=== PATIENT | male | born 1990 | race Caucasian/White ===

== ENCOUNTER 2023-08-25 15:25 | Emergency (ER) | payer OTHER ==
--- NOTE | 2023-08-25 15:33 | EDPHYS ---
Physician Documentation [facility] Name: Dony Cornell Age: 33 yrs Sex: Male : 1990 Arrival Date: 08/25/2023 Time: 15:25 Bed Waiting Private MD: ED Physician Max Carlton HPI: 08/25 16:47 This 33 yrs old Male presents to ER via Ambulatory with complaints of Arm Pain. kb 16:47 The patient presents with an abscess of the right axilla. Description: erythematous, kb swollen. Onset: The symptoms/episode began/occurred 3 day(s) ago. Possible cause(s): unknown. Associated signs and symptoms: Pertinent positives: erythema, swelling. Modifying factors: the symptoms are alleviated by nothing, the symptoms are aggravated by pressure, squeezing the lesion and expressing the contents. Severity of symptoms: At their worst the symptoms were mild, moderate, in the emergency department the symptoms are unchanged. The patient has not experienced similar symptoms in the past. The patient has not recently seen a physician. Historical: - Allergies: 15:32 PENICILLINS; ss 15:32 Latex, Natural Rubber; ss 15:32 Tylenol; ss - Home Meds: 15:32 None [Active]; ss - PMHx: 15:32 adhd; ss - Social history:: Smoking status: Patient reports the use of cigarette tobacco products, smokes one-half pack cigarettes per day. ROS: 16:46 Constitutional: Negative for fever, chills, and weight loss, kb 16:46 Skin: Positive for abscess, of the right axilla, 16:46 All other systems are negative, Exam: 16:46 Constitutional: This is a well developed, well nourished patient who is awake, alert, kb and in no acute distress. Head/Face: Normocephalic, atraumatic. ENT: Moist Mucous membranes Cardiovascular: Regular rate Respiratory: Respirations even and unlabored. No increased work of breathing. Talking in full sentences MS/ Extremity: Pulses equal, no cyanosis. Neurovascular intact. Full, normal range of motion. Neuro: Awake and alert, GCS 15, oriented to person, place, time, and situation. Moves all extremities. Normal gait. 16:46 Skin: abscess, that is small, of the right axilla, with surrounding cellulitis, that is very mild, Vital Signs: 15:31 BP 126 / 75; Pulse 86; Resp 16; Temp 98.2(TE); Pulse Ox 99% ; Weight 108.41 kg; Height ss 6 ft. 1 in. ; Pain 8/10; 15:31 Body Mass Index 31.53 (108.41 kg, 185.42 cm) ss 15:31 Pain Scale: Adult ss MDM: 15:29 Patient medically screened. kb 16:47 Differential diagnosis: abscess, allergic reaction, cellulitis, insect bite. Data kb reviewed: vital signs, nurses notes. Counseling: I had a detailed discussion with the patient and/or guardian regarding the historical points, exam findings, and any diagnostic results supporting the discharge/admit diagnosis, the need for outpatient follow up, a general surgeon, to return to the emergency department if symptoms worsen or persist or if there are any questions or concerns that arise at home. ED course: No drainable abscess appreciated. Administered Medications: 15:41 Drug: Trimethoprim-Sulfamethoxazole PO (160 mg-800 mg (DS) 1 tablet PO once Route: PO; ss 15:41 Follow up: Response: Medication administered at discharge. ss 15:41 Drug: Cephalexin PO 500 mg PO once Route: PO; ss 15:41 Follow up: Response: Medication administered at discharge. Disposition Summary: 08/25/23 15:32 Discharge Ordered Notes: Location: Home kb Condition: Stable kb Diagnosis - Cutaneous abscess of right axilla kb Followup: kb - With: Emergency Department - When: As needed - Reason: Worsening of condition Followup: kb - With: Private Physician - When: 2 - 3 days - Reason: Recheck today's complaints, Continuance of care, Re-evaluation by your physician Discharge Instructions: - Discharge Summary Sheet kb - Skin Abscess, Piaw-qa-Hedk kb Forms: - Medication Reconciliation Form kb - Thank You Letter kb - Antibiotic Education kb - Prescription Opioid Use kb - Patient Portal Instructions kb - Leadership Thank You Letter kb Prescriptions: - Cephalexin 500 mg Oral Capsule - take 1 capsule ORAL route every 8 hours for 10 days; 30 capsule; Refills: 0, kb Product Selection Permitted - Bactrim DS 800-160 mg Oral Tablet - take 1 tablet ORAL route every 12 hours for 10 days; 20 tablet; Refills: 0, kb Product Selection Permitted Addendum: 08/27/2023 07:39 I was immediately available for consultation during this patient's visit. I did not e c2 personally see the patient or guide the patient's care.. Signatures: Christi Syed FNP-C FNP-Jade Stevens RN RN ss Max Carlton MD MD ec2
--- NOTE | 2023-08-25 15:33 | ER ---
Nurse's Notes [facility] Name: Dony Cornell Age: 33 yrs Sex: Male : 1990 Arrival Date: 08/25/2023 Time: 15:25 Bed Waiting Private MD: Diagnosis: Cutaneous abscess of right axilla Presentation: 08/25 15:31 Chief complaint: Patient states: redness and inflammation under R axilla x 3 days. ss Coronavirus screen: Client denies travel out of the [place] in the last 14 days. Ebola Screen: Patient denies exposure to infectious person. Patient denies travel to an Ebola-affected area in the 21 days before illness onset. Initial Sepsis Screen: Does the patient meet any 2 criteria? No. Patient's initial sepsis screen is negative. Does the patient have a suspected source of infection? No. Patient's initial sepsis screen is negative. Risk Assessment: Do you want to hurt yourself or someone else? Patient reports no desire to harm self or others. Onset of symptoms was August 22, 2023. 15:31 Method Of Arrival: Ambulatory ss 15:31 Acuity: LI 4 ss Historical: - Allergies: 15:32 PENICILLINS; ss 15:32 Latex, Natural Rubber; ss 15:32 Tylenol; ss - Home Meds: 15:32 None [Active]; ss - PMHx: 15:32 adhd; ss - Social history:: Smoking status: Patient reports the use of cigarette tobacco products, smokes one-half pack cigarettes per day. Assessment: 15:33 General: Appears in no apparent distress. comfortable, Behavior is calm, cooperative. ss Pain: Complains of pain in right axilla Pain currently is 8 out of 10 on a pain scale. Quality of pain is described as tender. Respiratory: Airway is patent Respiratory effort is even, unlabored. Vital Signs: 15:31 BP 126 / 75; Pulse 86; Resp 16; Temp 98.2(TE); Pulse Ox 99% ; Weight 108.41 kg; Height ss 6 ft. 1 in. ; Pain 8/10; 15:31 Body Mass Index 31.53 (108.41 kg, 185.42 cm) ss 15:31 Pain Scale: Adult ss ED Course: 15:29 Patient arrived in ED. mg5 15:29 Christi Syed [facility]-C [facility] kb 15:29 Max Carlton MD is Attending Physician. kb 15:32 Triage completed. ss 15:32 Arm band placed on left wrist. ss 15:33 No provider procedures requiring assistance completed. Patient did not have IV access ss during this emergency room visit. Administered Medications: 15:41 Drug: Trimethoprim-Sulfamethoxazole PO (160 mg-800 mg (DS) 1 tablet PO once Route: PO; ss 15:41 Follow up: Response: Medication administered at discharge. ss 15:41 Drug: Cephalexin PO 500 mg PO once Route: PO; ss 15:41 Follow up: Response: Medication administered at discharge. ss Outcome: 15:32 Discharge ordered by . kb 15:41 Patient left the ED. ss Signatures: Christi Syed FNP-C FNP-Ckb Blanchard, Shelby, RN RN Izabella Dasilva mg5
[2023-08-25] MEDS ORDERED: SMZ./TMP. 800/160 MG TABLET ONE (15:52)
[2023-08-25] MEDS ORDERED: CEPHALEXIN 250 MG CAP ONE (15:52)
[2023-08-25 16:02] VITALS: BP 126/75; TEMP 98.2; O2SAT 99
== END 2023-08-25 15:41 | disposition home or self-care (01) ==
LOC: ER 15:25
DX: L03.111 Cellulitis of right axilla (principal); F17.210 Nicotine dependence, cigarettes, uncomplicated; Z88.0 Allergy status to penicillin; Z88.6 Allergy status to analgesic agent; Z91.040 Latex allergy status; Z91.048 Other nonmedicinal substance allergy status
CPT/HCPCS: 99282

== ENCOUNTER 2024-03-29 16:10 | Emergency (ER) | payer OTHER ==
--- OUTSIDE RECORDS SUMMARY | 2024-03-29 16:18 | XMS REPORT | Continuity of Care Document ---
Author Name Unknown Address [address] [place] [address] [facility] thconnect Address 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 Role Phone PCP, PATIENT DOES NOT HAVE A Primary Care Physic sahra Unavailable LEONIE KHAN Attending Clinician Unavailab Leonie Perez DO Attending Clinician [phone] LEONIE KHAN Admitting Clinician Unavailab euceda Payers Payer Name Policy Type Policy Number Effective Date Expirati on Date Source [employer] [id number] 2023 00:00:00 Allergies, Adverse Reactions, Alerts Allergy Name Allergy Type Status Severity Reaction(s) Onset Date Inactive Date Treating Clinician Comments Source PENICILL INS Drug Class Active Rash 11-30 00:00: 00 [facility] Penicill ins Propensi ty to adverse reaction s Active Rash 11-30 00:00: 00 [facility] Social History Social Habit Start Date Stop Date Quantity Comments Source Sexual orientation U [facility] Sex Assigned At 1990 00:00:00 1990 00:00:00 [facility] Smoking Status Start Date Stop Date Source Tobacco smoking consumption unknown [facility] Medications Ordered Medication Name Filled Medication Name Start Date Stop Date Current Medication? Ordering Clinician Indication Dosage Frequency Signature (SIG) Comments Components Source levoFLOXaci n (LEVAQUIN) tablet 750 mg 12-01 01:45: 00 12-01 01:06 :00 No 750mg 750 mg, Oral, ONCE NOW, 1 dose, On 11/30/23 at 1945, DANICA
Re ason for Anti-Infec tive: Empiric Therapy for Suspected Infection< br>Empiric Therapy Site: Skin / Soft tissue
Duration of therapy: Once (ED) [facility] HYDROcodone -acetaminop hen (NORCO 5) 5-325 mg tablet 1 tablet 12-01 00:45: 00 12-01 00:51 :00 No 1{tbl} 1 tablet, Oral, ONCE, 1 dose, On 11/30/23 at 1845, DANICA [facility] levoFLOXaci n 500 mg tablet 11-30 00:00: 00 12-08 05:59 :00 No [id number] 500mg Take 1 tablet by mouth every 24 (twenty-fo ur) hours for 7 days. [facility] Immunizations Ordered Immunization Name Filled Immunization Name Date Status Comments Source TD Pres-Free Unknown Completed [facility] Vital Signs Vital Name Observation Time Observation Value Comments S ource Systolic blood pressure 2023-12-01 02:00:00 127 mm[Hg] [facility] Diastolic blood pressure 2023-12-01 02:00:00 75 mm[Hg] [facility] Heart rate 2023-12-01 02:00:00 58 /min [facility] Respiratory rate 2023-12-01 02:00:00 16 /min [facility] Oxygen saturation in Arterial blood by Pulse oximetry 2023-12-01 02:00:00 99 /min [facility] Body temperature 2023-12-01 00:13:00 36.78 Margarita [facility] Body height 2023-12-01 00:13:00 185.4 cm [facility] Body weight 2023-12-01 00:13:00 106.595 kg [facility] BMI 2023-12-01 00:13:00 31.00 kg/m2 [facility] Procedures Procedure Date / Time Performed Performing Clinicia n Source ASSIGNMENT OF BENEFITS 2023-12-01 01:36:09 Docto r Unassigned, [place] [facility] POCT GLUCOSE (AUTOMATED) 2023-12-01 00:49:00 Leonie Khan [facility] CONSENT/REFUSAL FOR DIAGNOSIS AND TREATMENT 2023-12-01 00:08:46 Doctor Unassigned, [place] [facility] NOTICE OF PRIVACY PRACTICES 2023-12-01 00:08:26 Doctor Unassigned, [place] [facility] Encounters Start Date/Time End Date/Time Encounter Type Admission Type Attending Clinicians Care Facility Care Department Encounter ID Source 2023-11-30 18:17:00 2023-11-30 20:26:00 Emergency X LEONIE KHAN [facility] ERT [id number] [facility] 2023-11-30 18:17:00 2023-11-30 20:26:00 Emergency Leonie Khan [facility] [id number] [facility] Results Test Description Test Time Test Comments Results Result Co mments Source [facility](AGE >30DAYS)2023-12-01 00:49:00* Test Item Value Reference Range Interpretation Comme nts POCT Glu (age>30days) (test code = 3342) 130 mg/dL 70-110 A Lab Interpretation (test cod e = 94404-6) Abnormal [facility] Notes Date/Time Note Provider Source 2023-11-30 20:25:34 [id number]:25:34S ummary: Discharge Pt given printed and verbal discharge instructions regarding right foot pain, encouraged hydration,Prescriptions provided LevofloxacinDiscussed ibuprofen and to take with food to avoid GI distress.Discussed antibiotic therapy and to take until all completed unless adverse reaction occurs - if occurs, discontinue medication and follow up with pcp/seek medical attentionPt verbalized understanding of instructions, pt awake alert oriented, resp reg unlabored, skin w/d, color appropriate for race, moves all ext well,pt encouraged to follow up with pcpAdvised to seek medical attention for new/prolonged/worsening of symptoms,SymptomsNo adverse reaction to meds given in ER noted upon dischargeAwake, alert oriented, resp reg unlabored, skin w/d, pt leaving amb with steady gait, in no apparent distress, [id number] department YjbeCI4967-80-31P79:26:14[facility] [id number] .[id number] for patient ptig29537-0AiadDVYUJBYTQPFIxzzksjb d C-CDA narrative [id number] Schroeder RNUT01 Al[address] [id number] 85JESFUDXWLAUEZDCKLLDNWM0484-03-91 T20:26:141.2.840.581216.1.72.3.15| 1.2.840.910690.1.13.104.2.7.2.7278 [id number] Germania Russell RN [facility] 2023-11-30 18:12:46 4790-33-06M38:12:46F ormatting of this note might be different from the original.Pt arrived via private car with c/o right foot pain. 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 He was wearing a sneaker when the incident happened and reports the nail went completely through his sneaker and into his foot. He easily pulled the nail out and applied duct tape to the wound and finished the job. He reports he now has pain around the area. No fevers. No drainage from the wound. He is unsure of last tetanus vaccine. He does not have any diabetes. No medications taken for pain today.Here for evaluation.Past Medical History/Immunizations:History reviewed. No pertinent past medical history.Tetanus received in last 5 years: NoChildhood immunizations: Cj-ol-nzkpOlvmicubi:AllergiesAller gen ReactionsPcn [Penicillins] RashPast Social History:Substance & Sexual ActivityNo substance use or sexual activity history on file.Past Surgical History:History reviewed. No pertinent surgical history.Review of Systems:Review of SystemsConstitutional: Negative for chills and fever.Respiratory: Negative for cough and shortness of breath.Cardiovascular: Negative for chest pain.Gastrointestinal: Negative for abdominal pain and vomiting.Genitourinary: Negative for dysuria.Musculoskeletal: Negative for arthralgias, neck pain and neck stiffness.Skin: Positive for wound.Neurological: Negative for dizziness.Psychiatric/Behavioral: Negative for agitation.Physical Exam:ED Triage Vitals [11/30/23 1813]Weight 106.6 kg (235 lb)Actual or estimated Estimated by patient/family reportHeight 1.854 m (6' 1")BP 115/72Pulse 65Resp 16Temp 36.8 ?C (98.2 ?F)Temp source OralSpO2 99 %Measured on Room airPhysical ExamVitals and nursing note reviewed.Constitutional:Appearance : Normal appearance. He is obese.HENT:Head: Normocephalic and atraumatic.Cardiovascular:Rate and Rhythm: Normal rate and regular rhythm.Pulmonary:Effort: Pulmonary effort is normal. No respiratory distress.Abdominal:General: There is no distension.Tenderness: There is no abdominal tenderness.Musculoskeletal:General : Normal range of motion.Cervical back: Normal range of motion and neck supple.Skin:General: Skin is warm and dry.Comments: +2 dorsalis pedis right side.Pinpoint wound to the bottom of his right foot on the lateral aspect. The area is tender to the touch but not warm, erythematous or fluctuant.Neurological:Mental Status: He is alert.Radiology:XR FOOT 3+ VW RIGHTPreliminary ResultEXAM: XR FOOT 3+ VW RIGHTHISTORY: right foot painCOMPARISON: None.FINDINGS:Radiographs of the right foot demonstrate no acute fracture ordislocation.The joint spaces are maintained. No soft tissue abnormality is seen.Bunion (metatarsus varus) deformity is visualized with metatarsophalangealangles measuring approximately 45 degrees.IMPRESSIONNo acute osseous abnormality.Hallux valgus/metatarsus varus deformity.Preliminary Report Dictated by Resident: Janice DíaztibChevy Results:Lab ResultsPOCT GLUCOSE(AGE >30DAYS) - AbnormalResult Value Ref RangePOCT Glu (age>30days) 130 (*) 70 - 110 mg/dLPOCT GLUCOSE (AUTOMATED) - AbnormalPOCT GLU 130 (*) 70 - 110 mg/dLEKG:If EKG completed, see Procedure Note.Orders and Treatments:Orders Placed This EncounterProceduresXR FOOT 3+ VW RIGHTPOCT GLUCOSE(AGE >30DAYS)POCT GLUCOSE (AUTOMATED)Orders Placed This EncounterMedicationstetanus-diphth eria toxoids (TENIVAC) 5-2 Lf unit/0.5 mL injection 0.5 mLHYDROcodone-acetaminophen (NORCO 5) 5-325 mg tablet 1 tabletlevoFLOXacin (LEVAQUIN) tablet 750 mglevoFLOXacin 500 mg tabletFirst Provider Eval:ED EventsDate/Time Event User Wotkdnmf16/17/241808 Medical Screening Begins LEONIE KHAN DO --11/30/231808 First Provider Evaluation LEONIE KHAN DO --ED COURSEDiagnosis/Impression as of 11/30/23 2006Right foot painProcedures:ProceduresMDM:Medic al Decision MakingThe patient presents from home for evaluation after stepping on a nail yesterday evening while wearing a sneaker. He reports the nail went completely through his sneaker and his foot and he was easily able to pull it out on his own. He now has pain to the area. No drainage from the wound. No fevers. No medications taken for symptoms today. He is unsure of his last tetanus vaccine. No history of diabetes.Vital signs are stable in the ER.The patient is obese.Is a small pinpoint wound to the bottom of his right foot on the lateral aspect. There is no surrounding erythema or warmth but the area is tender to the touch.+2 dorsalis pedis right side.He is able to wiggle his toes of his right foot without difficulty.Will obtain an x-ray to eval for any possible bony injury.Will update his tetanus vaccine here in the ER and give the patient pain medication.Will also initiate antibiotics for possible infection.Anticipate discharge home later.2002 -the patient is doing well here in the ER.His glucose is 130 here in the ER.X-ray of his right foot shows no acute osseous injuries.He was given a first dose antibiotic here in the ER.He remained stable here in the ER and is okay for discharge home with PCP follow-up.Recommend the patient return to the ER for fever greater than 100.4, drainage from his wound or redness and swelling to his foot.Problems Addressed:Right foot pain: acute illness or injuryAmount and/or Complexity of Data ReviewedLabs: ordered. Decision-making details documented in ED Course.Radiology: ordered and independent interpretation performed. Decision-making details documented in ED Course.RiskOTC drugs.Prescription drug management.Flowsheet Documentation:Scoring Tools:No data recordedDisposition/Condition:ED DispositionED DispositionDisch - HomeConditionStableComment--Discha rge Medications:Patient's MedicationsSTART taking these medicationsLEVOFLOXACIN 500 MG TABLET Take 1 tablet by mouth every 24 (twenty-four) hours for 7 days.CONTINUE taking these medications which have NOT CHANGEDNo medications on fileSTART taking Modified Medications as PrescribedNo medications on fileSTOP taking these medicationsNo medications on fileFollow-up:Electronically signed by:Leonie Khan DO11/30/23 2006 [id number] Emergency department LeesQK5845-19-95C04:06:30[facility] Emergency department [id number] .[id number] for patient czed17280-1Ykgctmksw department NoteLNNARRATIVEFormatted C-CDA narrative textUT[address] Dc[id number] 49ERSGKZKUGPENOKHMIZLRAP4566-24-18 T20:06:301.2.840.178010.1.72.3.15| 1.2.840.713011.1.13.104.2.7.2.7[address] [id number] [facility]
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
[2024-03-29 17:52] VITALS: BP 133/61; TEMP 97.6; O2SAT 98
== END 2024-03-29 17:40 | disposition home or self-care (01) ==
LOC: ER 16:10
DX: Z77.098 Contact with and (suspected) exposure to other hazardous, chiefly nonmedicinal, chemicals (principal)
CPT/HCPCS: 99283